=== PATIENT | female | born 1960 | race Caucasian/White ===

== ENCOUNTER → 2022-11-16 | Outpatient (CLI) | payer SELFPAY ==
[~2022-11-16] MED LIST: AUGMENTIN 500 M1 TAB PO; DIFLUCAN150 MG PO
== END | disposition home or self-care (01) ==
LOC: RAD 08:25
PROVIDERS: ATTEND Nurse Practitioner Family
DX: J90 Pleural effusion, not elsewhere classified (principal); J20.9 Acute bronchitis, unspecified

== ENCOUNTER 2023-01-27 07:41 | Inpatient (IN) | payer SELFPAY ==
[~2023-01-27] VITALS: Ht 165 cm; Wt 60.0 kg
[2023-01-27 07:47] VITALS: BP 132/98
[2023-01-27 08:35] LABS: BASO # 0.1 10*3/uL (0.0-0.1); BASO % 0.6 % (0.0-1.0); EOS % 0.2 % (1.0-4.0); HEMATOCRIT 44.1 % (37.0-47.0); LYMPH # 1.3 10*3/uL (1.3-4.4); LYMPH % 12.3 % (27.0-41.0); MEAN CORPUSCULAR HGB 27.8 pg (27.0-31.0); MEAN PLATELET VOLUME 9.1 fl (9.6-12.3); MONO # 0.6 10*3/uL (0.1-1.0); MONO % 5.1 % (3.0-9.0); NEUT # 8.8 10*3/uL (2.3-7.9); NEUT % 81.3 % (47.0-73.0); PLATELET COUNT AUTOMATED 371 10*3/uL (130-400); RED BLOOD COUNT 5.07 10*6/uL (4.10-5.10); RED CELL DISTRI WIDTH 19.9 % (0-14.5); WHITE BLOOD COUNT 10.8 10*3/uL (4.8-10.8)
[2023-01-27 08:53] LABS: ALKALINE PHOSPHATASE 122 U/L (46-116); BUN 11 mg/dl (9-23); CHLORIDE 99 mmol/L (98-107); POTASSIUM 4.4 mmol/L (3.4-5.1); SGPT/ALT 97 U/L (10-49); TOTAL PROTEIN 6.8 gm/dL (6.0-8.0)
[2023-01-27 11:57] VITALS: BP 130/92
[2023-01-27 17:25] VITALS: BP 125/72
[2023-01-27 20:43] VITALS: BP 122/76
[2023-01-27 22:10] VITALS: BP 110/70
[2023-01-28 02:15] VITALS: BP 124/72
[2023-01-28 05:53] VITALS: BP 121/70
[2023-01-28 06:46] LABS: BASO # 0.1 10*3/uL (0.0-0.1); BASO % 0.6 % (0.0-1.0); EOS # 0.2 10*3/uL (0.0-0.4); EOS % 1.4 % (1.0-4.0); HEMATOCRIT 47.8 % (37.0-47.0); LYMPH # 1.8 10*3/uL (1.3-4.4); LYMPH % 14.2 % (27.0-41.0); MEAN CELL VOLUME 86.9 fl (81.0-99.0); MEAN CORPUSCULAR HGB 26.9 pg (27.0-31.0); MEAN PLATELET VOLUME 9.4 fl (9.6-12.3); MONO % 7.6 % (3.0-9.0); NEUT # 9.7 10*3/uL (2.3-7.9); NEUT % 75.8 % (47.0-73.0); PLATELET COUNT AUTOMATED 372 10*3/uL (130-400); RED CELL DISTRI WIDTH 20.1 % (0-14.5); WHITE BLOOD COUNT 12.8 10*3/uL (4.8-10.8)
[2023-01-28 07:21] LABS: ALKALINE PHOSPHATASE 128 U/L (46-116); BUN 11 mg/dl (9-23); CHLORIDE 99 mmol/L (98-107); CHOLESTEROL 180 mg/dL (<200); FREE T4 1.37 ng/dl (0.89-1.76); LDL CHOLESTEROL 115 mg/dL (9-159); SGPT/ALT 66 U/L (10-49); THYROID STIM HORMONE (HS) 2.405 uIU/ml (0.550-4.780); TOTAL PROTEIN 6.6 gm/dL (6.0-8.0); TRIGLYCERIDES 199 mg/dl (<150)
[2023-01-28 07:44] LABS: VITAMIN D, 25-HYDROXY 33.7 ng/mL (30-100)
[2023-01-28 09:24] VITALS: BP 134/81
[2023-01-28 10:45] VITALS: BP 135/86
[2023-01-28 16:00] VITALS: BP 112/79
[2023-01-28 20:00] VITALS: BP 115/78
[2023-01-29] VITALS: BP 105/73
[2023-01-29 05:26] LABS: ALKALINE PHOSPHATASE 130 U/L (46-116); BUN 9 mg/dl (9-23); CHLORIDE 92 mmol/L (98-107); POTASSIUM 3.2 mmol/L (3.4-5.1); SGPT/ALT 59 U/L (10-49); TOTAL PROTEIN 7.4 gm/dL (6.0-8.0)
[2023-01-29 06:31] LABS: BASO # 0.1 10*3/uL (0.0-0.1); BASO % 0.5 % (0.0-1.0); EOS # 0.3 10*3/uL (0.0-0.4); EOS % 1.9 % (1.0-4.0); HEMATOCRIT 48.1 % (37.0-47.0); LYMPH # 1.6 10*3/uL (1.3-4.4); LYMPH % 11.4 % (27.0-41.0); MEAN CELL VOLUME 85.3 fl (81.0-99.0); MEAN CORPUSCULAR HGB 27.7 pg (27.0-31.0); MEAN CORPUSCULAR HGB CONC 32.4 g/dl (33.0-37.0); MEAN PLATELET VOLUME 9.4 fl (9.6-12.3); MONO # 1.2 10*3/uL (0.1-1.0); NEUT # 10.5 10*3/uL (2.3-7.9); NEUT % 76.8 % (47.0-73.0); PLATELET COUNT AUTOMATED 391 10*3/uL (130-400); RED BLOOD COUNT 5.64 10*6/uL (4.10-5.10); RED CELL DISTRI WIDTH 20.1 % (0-14.5); WHITE BLOOD COUNT 13.7 10*3/uL (4.8-10.8)
[2023-01-29 08:00] VITALS: BP 116/81
[2023-01-29 12:00] VITALS: BP 107/77
[2023-01-29 16:00] VITALS: BP 114/34
[2023-01-29 20:00] VITALS: BP 108/79
[2023-01-30] VITALS: BP 97/63
[2023-01-30 06:07] LABS: HBSAG Negative (Negative); HEP B CORE AB, IGM Negative (Negative); HEPATITIS C ANTIBODY Non Reactive (Non Reactive)
[2023-01-30 06:26] LABS: BASO # 0.1 10*3/uL (0.0-0.1); BASO % 0.7 % (0.0-1.0); EOS # 0.4 10*3/uL (0.0-0.4); EOS % 3.2 % (1.0-4.0); HEMATOCRIT 53.9 % (37.0-47.0); LYMPH # 1.4 10*3/uL (1.3-4.4); LYMPH % 11.4 % (27.0-41.0); MEAN CELL VOLUME 86.7 fl (81.0-99.0); MEAN CORPUSCULAR HGB 27.2 pg (27.0-31.0); MEAN CORPUSCULAR HGB CONC 31.4 g/dl (33.0-37.0); MEAN PLATELET VOLUME 9.3 fl (9.6-12.3); MONO % 7.7 % (3.0-9.0); NEUT # 9.7 10*3/uL (2.3-7.9); NEUT % 76.5 % (47.0-73.0); PLATELET COUNT AUTOMATED 385 10*3/uL (130-400); RED BLOOD COUNT 6.22 10*6/uL (4.10-5.10); RED CELL DISTRI WIDTH 20.7 % (0-14.5); WHITE BLOOD COUNT 12.6 10*3/uL (4.8-10.8)
[2023-01-30 07:58] LABS: ALKALINE PHOSPHATASE 146 U/L (46-116); BUN 15 mg/dl (9-23); CHLORIDE 91 mmol/L (98-107); POTASSIUM 4.1 mmol/L (3.4-5.1); SGPT/ALT 52 U/L (10-49); TOTAL PROTEIN 7.7 gm/dL (6.0-8.0)
[2023-01-30 08:00] VITALS: BP 104/70
[2023-01-30] MEDS ORDERED: ATORVASTATIN CA40 M1 PO (10:44)
[2023-01-30] MEDS ORDERED: METOPROLOL SUCC25 M2 PO (10:44)
[2023-01-30] MEDS ORDERED: ENTRESTO 24 MG1 EACH PO (10:44)
[2023-01-30] MEDS ORDERED: ASPIRIN ADULT L81 M2 PO (10:44)
[2023-01-30 11:38] LABS: BF LYMPHOCYTES 66 %; BF MACROPHAGES 11 %; BF MESOTHELIALS 2 %; BF NEUTROPHILS 21 %
[2023-01-30 12:00] VITALS: BP 102/79
== END 2023-01-30 13:20 | disposition short-term general hospital (02) | DRG 292 ==
LOC: ED 07:41 → EDHOLD 11:42 → 5E 11:42 → EDHOLD 11:43 → 5E 01-28 10:07
PROVIDERS: Internal Medicine; Internal Medicine Critical Care Medicine; Student in an Organized Health Care Education/Training Program; ADMIT Emergency Medicine; ATTEND Emergency Medicine
PROC: 0W993ZZ Drainage of Right Pleural Cavity, Percutaneous Approach (ICD-10-PCS; principal; 2023-01-30)
DX: I50.41 Acute combined systolic (congestive) and diastolic (congestive) heart failure (principal); E87.1 Hypo-osmolality and hyponatremia; J91.8 Pleural effusion in other conditions classified elsewhere; I42.9 Cardiomyopathy, unspecified; I08.1 Rheumatic disorders of both mitral and tricuspid valves; R73.9 Hyperglycemia, unspecified; R74.01 Elevation of levels of liver transaminase levels; F17.210 Nicotine dependence, cigarettes, uncomplicated; I25.10 Atherosclerotic heart disease of native coronary artery without angina pectoris; K80.20 Calculus of gallbladder without cholecystitis without obstruction; E87.6 Hypokalemia; Z71.6 Tobacco abuse counseling

== ENCOUNTER → 2023-03-14 | Outpatient (CLI) | payer SELFPAY ==
[~2023-03-14] MED LIST changes: +ASPIRIN ADULT L81 M2 PO; +ATORVASTATIN CA40 M1 PO; +ENTRESTO 24 MG1 EACH PO; +METOPROLOL SUCC25 M2 PO
== END | disposition home or self-care (01) ==
LOC: RESCLI 01:40
PROVIDERS: ATTEND Student in an Organized Health Care Education/Training Program
DX: I25.10 Atherosclerotic heart disease of native coronary artery without angina pectoris (principal); I50.20 Unspecified systolic (congestive) heart failure; E55.9 Vitamin D deficiency, unspecified; F17.210 Nicotine dependence, cigarettes, uncomplicated; E78.2 Mixed hyperlipidemia; Z86.16 Personal history of COVID-19; Z71.6 Tobacco abuse counseling; I34.0 Nonrheumatic mitral (valve) insufficiency; F10.90 Alcohol use, unspecified, uncomplicated; Z98.890 Other specified postprocedural states; Z79.899 Other long term (current) drug therapy